=== PATIENT | male | born 1960 | race Caucasian/White ===

== ENCOUNTER 2019-07-22 09:50 | Outpatient (CLI) | payer OTHER, SELFPAY | END 2019-07-22 09:51 | disposition home or self-care (01) | PROVIDERS: PCP Family Medicine; Visit Provider Nurse Practitioner Family | DX: E11.22 Type 2 diabetes mellitus with diabetic chronic kidney disease (principal); I12.9 Hypertensive chronic kidney disease with stage 1 through stage 4 chronic kidney disease, or unspecified chronic kidney disease; Z13.1 Encounter for screening for diabetes mellitus | CPT/HCPCS: 36415; 83036 ==

== ENCOUNTER 2019-09-07 17:06 | Emergency (ER) | payer OTHER, SELFPAY ==
--- NOTE | 2019-09-07 17:16 | ED.URI ---
HPI - URI/Sore Throat General Chief Complaint: Upper Respiratory Infection Stated Complaint: cold/Flu sx Time Seen by Provider: 09/07/19 17:16 Source: patient and RN notes reviewed History of Present Illness HPI Narrative: Patient is a 59-year-old male who presents the urgent care with complaints of head pressure, sinusitis, congestion. Patient states he has had a mild intermittent cough without any production. Denies of any sore throat but states he has had a lot of postnasal drainage. Denies any known fever, nausea, vomiting, shortness of breath. Denies of any known exposure to COVID. Patient states he has been using [facility] cold and sinus. No other acute complaints. Patient states that he typically gets an antibiotic for his current symptoms . No acute distress noted. Patient read the plan of care. Related Data Home Medications Medication Instructions Recorded Confirmed atorvastatin 40 mg PO DAILY 09/07/19 09/07/19 canagliflozin [Invokana] 100 mg PO DAILY 09/07/19 09/07/19 duloxetine 60 mg PO DAILY 09/07/19 09/07/19 glimepiride 2 mg PO DAILY 09/07/19 09/07/19 insulin glargine [Lantus Solostar unit SUBCUT DIRECTED 09/07/19 U-100 Insulin] insulin lispro [Humalog KwikPen unit SUBCUT DIRECTED 09/07/19 Insulin] metformin 1,000 mg PO DIRECTED 09/07/19 09/07/19 metoprolol succinate [Toprol XL] 100 mg PO DAILY 09/07/19 09/07/19 nifedipine 60 mg PO DAILY 09/07/19 09/07/19 pantoprazole 40 mg PO DAILY 09/07/19 09/07/19 zolpidem 12.5 mg PO HS 09/07/19 09/07/19 Allergies Allergy/AdvReac Type Severity Reaction Status Date / Time eszopiclone AdvReac Unknown SHORTNESS Unverified 09/28/17 09:42 OF BREATH Review of Systems Review of Systems: Narrative: CONSTITUTIONAL: Denies fever, chills, or sweats. EYES: Denies visual changes, redness, or discharge. ENT: Reports of congestion, postnasal drainage, rhinorrhea and sneezing with frontal sinus pressure CARDIOVASCULAR: Denies chest pain, palpitations, or edema. RESPIRATORY: Reports a mild intermittent cough without dyspnea GASTROINTESTINAL: Denies abdominal pain, nausea, vomiting, or diarrhea. GENITOURINARY: Denies dysuria or hematuria. SKIN: Denies rash or itching. MUSCULOSKELETAL: Denies back pain, joint pain, or myalgia. NEUROLOGIC: Denies headache, numbness, or weakness. All other systems reviewed are negative, except as documented in HPI. PMFSH Comments At the time of my signature, I reviewed and agree with the nursing past medical, surgical, social, and family history. There is no relevant family history pertinent to the patient complaint. Exam Narrative: Exam Narrative: GENERAL: This is a well-nourished, well-developed patient, in no apparent distress. HEAD: normocephalic, atraumatic. Frontal sinus tenderness EYES: PERRL. Sclera clear/white. Vision is grossly intact. EARS: External ears normal, auditory canals clear and without drainage, TMs normal without perforation. Hearing grossly intact. NOSE: External nose normal with no obvious nasal discharge, mildly erythemic nares with clear rhinorrhea. THROAT: Mucous membranes moist, posterior pharynx clear. Moderate postnasal drainage NECK: Neck supple, non-tender without lymphadenopathy, masses or thyromegaly. CARDIOVASCULAR: Regular rate and rhythm without murmurs, gallops, or rubs. RESPIRATORY: Clear to auscultation. Breath sounds equal bilaterally. No wheezes, rales, or rhonchi. SKIN: warm, intact with no suspicious lesions or rash, good texture and turgor. NEURO: awake, alert, and oriented to person, place and time. There were no obvious focal neurologic abnormalities. EXTREMITIES: No clubbing, cyanosis, or edema. Course Vital Signs Vital signs: Vital Signs Temperature 97.1 F L 09/07/19 17:18 Pulse Rate 84 09/07/19 17:18 Respiratory Rate 16 09/07/19 17:18 Blood Pressure 116/82 09/07/19 17:18 Pulse Oximetry 98 09/07/19 17:18 Temperature 97.1 F L 09/07/19 17:18 Pulse Rate 84
[2019-09-07 17:18] VITALS: BP 116/82; PULSE 84; RESP 16; TEMP 36.2; O2SAT 98
== END 2019-09-07 17:32 | disposition home or self-care (01) ==
PROVIDERS: Emergency Provider Nurse Practitioner Family; PCP Family Medicine
DX: J32.9 Chronic sinusitis, unspecified (principal); E78.00 Pure hypercholesterolemia, unspecified; I10 Essential (primary) hypertension; G47.30 Sleep apnea, unspecified; E11.9 Type 2 diabetes mellitus without complications; F32.9 Major depressive disorder, single episode, unspecified
CPT/HCPCS: 99213; G0463

== ENCOUNTER 2019-09-28 17:05 | Outpatient (CLI) | payer OTHER, SELFPAY ==
[2019-09-28 17:31] LABS: Add Urine Microscopic? YES; Appearance Urine Clear (Clear); Bilirubin Urine Negative (Negative); Blood Urine Negative (Negative); Color Urine Straw (Yellow); Glucose Urine UA 3+ mg/dL (Negative); Ketones Urine Negative (Negative); Leukocyte Esterase Ur Negative LEU/UL (Negative); Mucus Urine Rare /lpf; Nitrate Urine Negative (Negative); Protein Urine Negative (Negative); RBC Urine 0-2 /hpf (0-2); Squamous Epithelial Cell Urine Rare /hpf (Few); Urobilinogen Urine Negative mg/dL (<2.0); WBC Urine 0-3 /hpf
[2019-09-28 17:43] LABS: Specific Grav Ur 1.031 (1.001-1.035)
[2019-09-28 18:14] LABS: Prostate Specific Antigen 1.6 ng/mL (< OR = 4.0)
== END 2019-09-28 17:06 | disposition home or self-care (01) ==
PROVIDERS: PCP Family Medicine; Visit Provider Nurse Practitioner Family
DX: R30.0 Dysuria (principal); Z12.5 Encounter for screening for malignant neoplasm of prostate
CPT/HCPCS: 36415; 81001; 84153; G0103

== ENCOUNTER → 2020-05-12 00:26 | Outpatient (CLI) | payer OTHER, SELFPAY ==
[2020-05-12 20:23] LABS: SARS-CoV-2 RNA PCR Negative
== END ==
PROVIDERS: PCP Family Medicine; Visit Provider Plastic Surgery
DX: Z01.812 Encounter for preprocedural laboratory examination (principal); Z20.822 Contact with and (suspected) exposure to COVID-19
CPT/HCPCS: C9803; U0003; U0005

== ENCOUNTER 2020-05-12 07:31 | Outpatient (CLI) | payer OTHER, SELFPAY ==
--- NOTE | 2020-05-12 07:59 | ECG_ITS ---
Measurements Intervals [place] Rate: 76 P: 59 TX: 212 QRS: 10 QRSD: 83 T: 43 QT: 367 QTc: 413 Interpretive Statements SINUS RHYTHM WITH FIRST DEGREE AV BLOCK ABNORMAL ECG Electronically Signed On 05-12-2020 8:34:50 CDT by Ceasar Francis D.O.
[2020-05-12 08:31] LABS: Potassium 4.2 mmol/L (3.4-5.0)
[2020-05-12 08:36] LABS: Anion Gap 6 mmol/L (8-16); Blood Urea Nitrogen 21 mg/dL (9-20); Calcium 9.6 mg/dL (8.4-10.2); Carbon Dioxide 30 mmol/L (22-30); Chloride 106 mmol/L (98-107); Estimated Glomerular Filt Rate 48; Glucose 205 mg/dL (75-110); Sodium 142 mmol/L (137-145)
== END 2020-05-12 07:32 | disposition home or self-care (01) ==
PROVIDERS: PCP Family Medicine; Visit Provider Anesthesiology
DX: I10 Essential (primary) hypertension (principal); E11.9 Type 2 diabetes mellitus without complications
CPT/HCPCS: 36415; 80048; 93005

== ENCOUNTER 2020-05-16 00:28 | Day surgery (SDC) | payer OTHER, SELFPAY ==
[2020-05-07 09:41] VITALS: BMI 31.1
--- NOTE | 2020-05-15 15:48 | WPDANESEPPF ---
Anes - Initial Pre Proc Eval Procedure: Operation Date: 05/16/20 07:30 Proposed Procedures p Excision Subcutaneous Mass Left Medial Buttocks - Brodie Lee MD Date/Time: 05/15/20 15:48 Surgeon: Brodie Lee MD Pre Op Diagnosis: 2cm Sq Mass Left Medial Buttocks Patient Data Age: 60 Gender: M Height: 1.85 m Weight: 107 kg Allergies Allergy/AdvReac Type Severity Reaction Status Date / Time No Known Allergies Allergy Verified 05/16/20 06:26 Home Medications Medication Instructions Recorded Confirmed Type atorvastatin 40 mg PO DAILY 09/07/19 05/16/20 History canagliflozin [Invokana] 100 mg PO DAILY 09/07/19 05/16/20 History duloxetine [Cymbalta] 60 mg PO DAILY 09/07/19 05/16/20 History fluticasone propionate [Flonase 2 spray NASAL DAILY #15.8 ml 09/07/19 05/16/20 Rx Allergy Relief] glimepiride 2 mg PO DAILY 09/07/19 05/16/20 History insulin glargine [Lantus Solostar 35 unit SUBCUT DIRECTED 09/07/19 05/16/20 History U-100 Insulin] insulin lispro [Humalog KwikPen 1 unit SUBCUT DIRECTED 09/07/19 05/16/20 History Insulin] metformin 1,000 mg PO DIRECTED 09/07/19 05/16/20 History metoprolol succinate [Toprol XL] 100 mg PO DAILY 09/07/19 05/16/20 History nifedipine [Adalat CC] 60 mg PO DAILY 09/07/19 05/16/20 History pantoprazole 40 mg PO DAILY 09/07/19 05/16/20 History zolpidem [Ambien CR] 12.5 mg PO HS 09/07/19 05/16/20 History Patient hx anesthesia problems: none Family hx anesthesia problems: none PMFSH Past Medical History Medical History (Updated 05/15/20 @ 15:49 by Ravindra Pace MD) Chronic GERD Depression Diabetes HTN (hypertension) Hypercholesterolemia Obesity JAG on CPAP Social History Social History (System 01/18/20 @ 13:37 by Libertad Flores) Smoking status: Never smoker Alcohol intake: never Living arrangements: with family Gender identity (if verbalized by the patient): Male Spiritual care concerns: No Anes - Eval Final PreProcedure Day of Procedure 05/15/20 15:48 Patient weight: obese Heart: regular rate and rhythm Lungs: clear to auscultation and normal air movement Airway: Mallampati scale class II Neurological: alert and oriented Last oral intake: >/= 8 hours ASA classification: III Emergent: no Anesthetic plan: proceed Anesthesia type and monitoring: general GIVS Informed Consent: The patient's anesthetic plan and its attendant risks and benefits were discussed with the patient/family/POA. Questions were solicited and answers provided to the satisfaction of the patient/family/POA.
[2020-05-16 06:15] VITALS: BP 117/65; PULSE 63; RESP 16; TEMP 36.3; O2SAT 99
[2020-05-16] MEDS: LACTATED RINGERS 1,000 ML 30 ML IV CONT (06:38)
[2020-05-16 06:48] LABS: Glucose Point of Care 113 (65-105)
--- NOTE | 2020-05-16 06:58 | WPDHPUPDATE1 ---
History and Physical Update Update Date/Time: 05/16/20 06:58 History and Physical has been reviewed, including an updated exam of the patient. There are NO changes in the patient's condition. Risks, benefits, and alternatives have been discussed and questions answered. Patient agrees to proceed with procedure.
[2020-05-16] MEDS: LIDO 1%/EPINEPHRINE 1:100,000 50 ML VIAL 8 ML INFILTRATE (07:30)
[2020-05-16] MEDS: BACITRACIN OINTMENT 15 GM TUBE 1 APPLIC TOPICAL (08:02)
--- NOTE | 2020-05-16 08:16 | PM.OP ---
Procedure Note - Brief Procedure Note - Brief Date of procedure: 05/16/20 Pre-op diagnosis: 2cm Sq Mass Left Medial Buttocks Post-op diagnosis: same Procedure performed: 2 cm excision of subcutaneous mass of left medial buttock with Intermediate repair 3.3 cm. Anesthesia: MAC Surgeon: Brodie Lee MD Pin Drafting Machine Operator: catherine Estimated blood loss (mL): 1 Drains: No Packing: No Pathology: yes Complications: No immediate complications Condition: stable Disposition: PACU
[2020-05-16 08:30] VITALS: BP 130/70; PULSE 67; RESP 16; O2SAT 93
--- NOTE | 2020-05-16 08:37 | P.OP_ITS ---
Procedure Note - Detailed Date of procedure: 05/16/20 Pre-op diagnosis: 2cm Sq Mass Left Medial Buttocks Post-op diagnosis: same Procedure performed: 2 cm excision of subcutaneous mass left medial buttock with intermediate repair 3.3 cm. Description of procedure: The site was marked on the buttock of the patient as he waited in holding. He was taken to the operating room and placed supine on the operating table. He was then turned to his right side after being administered IV sedation anesthetic. The mass was easily visualized in this position. The area was prepped and draped in usual fashion. A time-out was held and confirmed. The incision was marked and locally infiltrated with 1% lidocaine with epinephrine. The full-thickness skin ellipse was incised and the mass taken with sharp and blunt dissection using scissors. It appeared to be a white lobulated soft fatty mass. We blew the entire mass was excised. Bleeding points were meticulously coagulated. The wound was closed with deep intradermal 3-0 Monocryl sutures. The skin was then closed with a running 5 0 nylon. Antibiotic ointment and a small Tegaderm were applied. The patient was turned to his back and discharged from the operating room stable condition. He is being discharged home with instructions in wound care follow-up. Follow- up will be in 2 weeks. A prescription for hydrocodone 8. Was sent to his pharmacy Anesthesia: MAC Surgeon: Brodie Lee MD Power Plant Electrician: Ricardo Ortega Estimated blood loss (mL): 1 Drains: No Packing: No Pathology: yes Complications: No immediate complications Condition: stable Disposition: same day
[2020-05-16 08:41] LABS: Glucose Point of Care 93 (65-105)
[2020-05-16 08:50] VITALS: BP 117/71; PULSE 57; RESP 16
[2020-05-16 09:20] VITALS: BP 99/66; PULSE 55; RESP 14
== END 2020-05-16 09:51 | disposition home or self-care (01) ==
PROVIDERS: PCP Family Medicine; Visit Provider Plastic Surgery
PROC: (CPT 21931; principal; 2020-05-16 07:30)
DX: D17.1 Benign lipomatous neoplasm of skin and subcutaneous tissue of trunk (principal); E11.9 Type 2 diabetes mellitus without complications; I10 Essential (primary) hypertension; E78.00 Pure hypercholesterolemia, unspecified; K21.9 Gastro-esophageal reflux disease without esophagitis; G47.33 Obstructive sleep apnea (adult) (pediatric); F32.9 Major depressive disorder, single episode, unspecified; E66.9 Obesity, unspecified; Z68.32 Body mass index [BMI] 32.0-32.9, adult; Z79.84 Long term (current) use of oral hypoglycemic drugs; Z79.4 Long term (current) use of insulin
CPT/HCPCS: 21931; 82948; 88304; A9270; J2250; J2704; J3010; J7120